=== PATIENT | female | born 1940 | race Two or more races ===

== ENCOUNTER 2021-01-23 11:06 | Outpatient (CLI) | payer OTHER | END 2021-01-23 11:08 | disposition home or self-care (01) | LOC: NUCLEAR 11:06 | PROVIDERS: ATTEND Internal Medicine Sports Medicine | DX: M85.89 Other specified disorders of bone density and structure, multiple sites (principal) ==

== ENCOUNTER 2024-01-17 16:24 | Emergency (ER) | payer OTHER ==
[~2024-01-17] VITALS: Ht 167.6 cm; Wt 79.8 kg
[~2024-01-17 16:24] MED LIST: CARAFATE1 G PO; CIPRO500 MG PO; IMODIUM A-D2 MG PO; LEVSIN/SL0.125 MG PO; OMEGA-31000 MG; PEPCID40 MG PO; PROTONIX40 MG PO; TENORMIN50 M1; VITAMIN D10000 UNIT
[2024-01-17] MEDS ORDERED: LEVOTHYROXINE25 MCG PO (16:47)
[2024-01-17] MEDS ORDERED: LABETALOL HCL 100 MG/20 ML ML IV ONE (17:45)
[2024-01-17 17:57] LABS: HEMOGLOBIN 13.6 g/dL (12.0-15.00); MEAN CELL VOLUME 94.1 fL (80.00-100.00); MEAN CORPUSCULAR HEMOGLOBIN 32.1 pg (27.00-32.0); MEAN CORPUSCULAR HGB CONC 34.1 g/dl (32.0-36.0); PLATELET COUNT 258 K/uL (150-450); RED BLOOD COUNT 4.25 M/uL (4.00-6.00); RED CELL DISTRIBUTION WIDTH 13.4 % (11.5-14.5)
[2024-01-17 18:06] LABS: URINE BILIRRUBIN Negative (NEGATIVE); URINE BLOOD Trace; URINE COLOR Yellow; URINE GLUCOSE Negative (NEGATIVE); URINE LEUKOCYTE Trace; URINE NITRATE Negative; URINE PROTEIN Negative (NEGATIVE); URINE UROBILINOGEN 0.2 E.U./dl
[2024-01-17 18:18] LABS: INR 1.11; PARTIAL THROMBOPLASTIN TIME 31.2 SECONDS (22.0-34.0); PROTHROMBIN TIME 11.6 SECONDS (9.0-11.5)
[2024-01-17 18:39] LABS: CALCIUM 9.3 mg/dL (8.5-10.1); CREATININE SERUM 0.99 mg/dL (0.55-1.02); GFR 53.44; POTASSIUM 4.61 mEq/L (3.5-5.1)
[2024-01-17 18:54] LABS: URINE APPEARANCE Clear; URINE BACTERIA 25.1 uL (0.0-1933); URINE EPITHELIAL CELLS 4.1 uL (0.0-38.8); URINE WBC 14.6 uL (0.0-23.2)
[2024-01-17 18:59] LABS: URINE RBC 0.5 uL (0.0-20.8)
[2024-01-17] MEDS ORDERED: LOSARTAN POTAS100 MG PO (19:09)
[2024-01-17] MEDS ORDERED: TOPROL XL50 M1 PO (19:09)
== END 2024-01-17 19:27 | disposition home or self-care (01) ==
LOC: ER 16:24
PROVIDERS: General Practice
DX: I10 Essential (primary) hypertension (principal); Z91.040 Latex allergy status
CPT/HCPCS: 36415; 71045; 93005; 96365; 99283; J3490

== ENCOUNTER 2025-02-16 10:16 | Outpatient (CLI) | payer OTHER ==
[~2025-02-16 10:16] MED LIST changes: +LEVOTHYROXINE25 MCG PO; +LOSARTAN POTAS100 MG PO; +TOPROL XL50 M1 PO
== END 2025-02-16 10:17 | disposition home or self-care (01) ==
LOC: NUCLEAR 10:16
PROVIDERS: ATTEND Family Medicine
DX: M81.0 Age-related osteoporosis without current pathological fracture (principal)

== ENCOUNTER 2025-02-16 15:18 | Outpatient (CLI) | payer OTHER | END 2025-02-16 15:24 | disposition home or self-care (01) | LOC: MAMO-SONO 15:18 | PROVIDERS: ATTEND Family Medicine | DX: N64.4 Mastodynia (principal); N60.11 Diffuse cystic mastopathy of right breast; Z12.31 Encounter for screening mammogram for malignant neoplasm of breast ==